=== PATIENT | female | born 1930 | race American Indian/Alaskan Native ===

== ENCOUNTER 2018-03-07 08:58 | Day surgery (SDC) | payer MEDICARE ==
[2018-03-07 12:59] VITALS: BP 179/94
== END 2018-03-07 13:08 | disposition home or self-care (01) ==
LOC: CATHLABREC 08:58
PROVIDERS: ATTEND Internal Medicine Cardiovascular Disease
DX: T82.897A Other specified complication of cardiac prosthetic devices, implants and grafts, initial encounter (principal); Y83.1 Surgical operation with implant of artificial internal device as the cause of abnormal reaction of the patient, or of later complication, without mention of misadventure at the time of the procedure
CPT/HCPCS: 76000

== ENCOUNTER 2019-07-01 18:35 | Inpatient (IN) | payer MEDICARE ==
--- NOTE | 2019-07-01 18:57 | Event Note ---
ED Screening Note Date of service: 07/01/19 Time: 18:54 ED Screening Note: 89 y o f presents with profuse sweats while at home and feeling fatigue states pacemaker in . cc od sob This initial assessment/diagnostic orders/clinical plan/treatment(s) is/are subject to change based on patients health status, clinical progression and re- assessment by fellow clinical providers in the ED. Further treatment and workup at subsequent clinical providers discretion. Patient/guardian urged not to elope from the ED as their condition may be serious if not clinically assessed and managed. Initial orders include: labs
[2019-07-01 19:37] LABS: Basophils # (Auto) 0.1 K/mm3 (0.0-0.1); Basophils % (Auto) 1.1 % (0.0-1.8); Eosinophils # (Auto) 0.2 K/mm3 (0.0-0.4); Eosinophils % (Auto) 2.6 % (0.0-4.3); Hematocrit 36.6 % (30.3-42.9); Hemoglobin 12.6 gm/dl (10.1-14.3); Lymphocytes # (Auto) 2.1 K/mm3 (1.2-5.4); Lymphocytes % (Auto) 32.3 % (13.4-35.0); Mean Corpuscular HGB Conc 35 % (30-34); Mean Corpuscular Volume 92 fl (79-97); Monocytes # (Auto) 0.8 K/mm3 (0.0-0.8); Monocytes % (Auto) 12.3 % (0.0-7.3); Platelet Count 277 K/mm3 (140-440); Red Blood Count 3.99 M/mm3 (3.65-5.03); Red Cell Distribution Width 12.9 % (13.2-15.2)
--- NOTE | 2019-07-01 19:40 | XRay Report ---
CHEST PA AND LATERAL VIEWS INDICATION: Weakness. COMPARISON: 03/13/2018 FINDINGS: Support devices: Bipolar pacemaker remains in position. Heart: Stable. Lungs/Pleura: Lungs are mildly hyperinflated but clear of acute disease. No pleural effusion. IMPRESSION: 1. No acute disease and no interval change. Signer Name: Alejandro Malone MD Signed: 07/01/2019 7:35 PM Workstation Name: [id number]
[2019-07-01 19:50] LABS: Calcium 9.5 mg/dL (8.4-10.2)
--- NOTE | 2019-07-01 20:52 | Emergency Department Report ---
ED Fever HPI - General Chief Complaint: Weakness Stated Complaint: FEVER/CHILLS/WEAK Time Seen by Provider: 07/01/19 18:53 Source: patient, family, RN notes reviewed Exam Limitations: no limitations - History of Present Illness Initial Comments: Mrs. Muse is a very pleasant 89-year-old female with history of hypertension, pacemaker, coronary artery disease, pulmonary embolism, CVA who presents with 5 days of generalized malaise with subjective fever and chills. On Wednesday she developed generalized malaise, fever and chills. Symptoms improve Tylenol. Mild sore throat. She is concerned about possible eating some bady food while traveling in [facility] last weekend. She denies any pain. She just doesn't feel well. Generalized weakness. Deniess chest pain or dysuria. Denies sick contact. Her daughter is at the bedside. Last year, had normal cardiac stress test during hospital admission. Timing/Duration: other (5 days) Fever Severity/Quality: subjective, low grade Fever Therapy FELT COVERER: Tylenol Associated Symptoms: weakness ED Review of Systems ROS: Stated complaint: FEVER/CHILLS/WEAK Other details as noted in HPI Comment: All other systems reviewed and negative Constitutional: chills, fever, malaise ENT: throat pain Respiratory: denies: cough, shortness of breath Cardiovascular: denies: chest pain Gastrointestinal: denies: abdominal pain, nausea, vomiting Genitourinary: denies: urgency, dysuria, frequency, hematuria Musculoskeletal: denies: back pain Neurological: denies: headache, numbness, paresthesias, confusion ED Past Medical Hx - Past Medical History Previous Medical History?: Yes Hx Hypertension: Yes Hx CVA: Yes Hx Heart Attack/AMI: Yes Hx Arthritis: Yes Hx COPD: Yes - Surgical History Past Surgical History?: Yes Hx Pacemaker: Yes Hx Appendectomy: Yes Additional Surgical History: 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 - Social History Smoking Status: Never Smoker - Medications Home Medications: Home Medications Medication Instructions Recorded Confirmed Last Taken Type AtorvaSTATin [Lipitor] 40 mg PO QHS #30 tablet 01/12/18 03/07/18 03/06/18 Rx 40mg Metoprolol Xl [Metoprolol 25 mg PO QDAY #30 tablet 01/12/18 03/07/18 03/06/18 Rx SUCCINATE ER TAB] 25mg Rivaroxaban [Xarelto] 20 mg PO QHS #30 tablet 01/12/18 03/07/18 03/06/18 Rx 20mg Valsartan/Hydrochlorothiazide 1 each PO DAILY #30 tablet 01/12/18 03/07/18 03/06/18 Rx [Valsartan-Hctz 320-25 mg Tab] 1 Meclizine [Antivert] 25 mg PO TID PRN #20 tablet 03/20/18 Unknown Rx ED Physical Exam - General Limitations: No Limitations General appearance: alert, in no apparent distress, other (appears well, healthy nontoxic appears younger than stated age) - Head Head exam: Present: atraumatic, normocephalic - Eye Eye exam: Present: normal appearance - ENT ENT exam: Present: mucous membranes moist - Neck Neck exam: Present: normal inspection, full ROM - Respiratory Respiratory exam: Present: normal lung sounds bilaterally. Absent: respiratory distress, wheezes, rales, rhonchi - Cardiovascular Cardiovascular Exam: Present: regular rate, normal rhythm, normal heart sounds. Absent: systolic murmur, diastolic murmur, rubs, gallop - GI/Abdominal GI/Abdominal exam: Present: soft, normal bowel sounds. Absent: distended, tenderness, guarding, rebound - Extremities Exam Extremities exam: Present: normal inspection - Back Exam Back exam: Present: normal inspection - Neurological Exam Neurological exam: Present: alert, oriented X3 - Psychiatric Psychiatric exam: Present: normal affect, normal mood - Skin Skin exam: Present: warm, dry, intact, normal color. Absent: rash ED Course Vital Signs 07/01/19 07/01/19 07/01/19 18:55 20:11 20:12 Temperature 97.8 F Pulse Rate 91 H 74 Respiratory 18 17 17 Rate Blood Pressure 204/70 Blood Pressure 173/80 [Left] O2 Sat by Pulse 97 97 97 Oximetry 07/01/19 21:52 Temperature Pulse Rate 68 Respiratory Rate Blood Pressure 165/70 Blood Pressure [Left] O2 Sat by Pulse Oximetry ED Medical Decision Making - Lab Data Result diagrams: 07/01/19 19:01 07/01/19 19:01 Laboratory Results - last 24 hr 07/01/19 07/01/19 19:01 19:01 WBC 6.6 RBC 3.99 Hgb 12.6 Hct 36.6 MCV 92 MCH 32 MCHC 35 H RDW 12.9 L Plt Count 277 Lymph % (Auto) 32.3 [place] % (Auto) 12.3 H Eos % (Auto) 2.6 Baso % (Auto) 1.1 Lymph # 2.1 White # 0.8 Eos # 0.2 Baso # 0.1 Seg Neutrophils % 51.7 Seg Neutrophils # 3.4 Sodium 139 Potassium 3.5 L Chloride 97.5 L Carbon Dioxide 28 Anion Gap 17 BUN 24 H Creatinine 1.7 H Estimated GFR 34 BUN/Creatinine Ratio 14 Glucose 123 H Calcium 9.5 Total Creatine Kinase 468 H Troponin T 0.012 - EKG Data 07/01/19 20:50 EKG obtained 184 atrial sensing ventricular pacing, porlonged MS interval paced QRS no si gnificant ST elevation 07/01/19 20:55 Previous EKG obtained 03/19/2018 revealed normal sinus rhythm normal axis normal intervals pacemaker activity not detected EKG December 2017 revealed atrial paced rhythm - Radiology Data Radiology results: report reviewed Chest x-ray pain and lateral views according to radiology interpretation and bip olar pacemaker remains in position, no acute disease and no interval change no pleural effusion - Medical Decision Making Mrs. Muse is an 89-year-old female who presents with generalized weakness subjective fever chlls. Findings on diagnostic workup reveals acute kidney injury, GFR 30 creatinine has increased from 0.8 to 1.7 over a year's time. Blood cultures obtained to rule out bacteremia. Acute kidney injury possibly due to poor by mouth intake versus infection versus medication. Accordance electronic medical record, she is taking hydrochlorothiazide. Hypertensive urgency addressed with dose of home medication obtained from the medical record . Elevated CK nonspecific finding without history of trauma or immobility. Urinalysis appeared contaminated with the bases as well as epithelial cells without indication of bacteria. Upon my observation, urine appeared dark concentrated. We'll cover for cystitis with Macrobid. Patient has penicillin allergy. Admitted to hospitalist service for further treatment and evaluation CT scan kidney protocol obtained for renal imaging with acute process. Incidental finding of a 5.5 cm pelvic mass will need outpatient evaluation. Critical care attestation.: If time is entered above; I have spent that time in minutes in the direct care of this critically ill patient, excluding procedure time. ED Disposition Clinical Impression: Acute kidney injury, Hypertensive urgency, Pelvic mass Disposition: OP ADMIT IP TO THIS HOSP Is pt being admited?: Yes Does the pt Need Aspirin: No Condition: Stable
[2019-07-01] MEDS ORDERED: NACL 0.9% 500 ML 500 ML IV ONE (20:57)
[2019-07-01] MEDS ORDERED: TOPROL XL PO ONE (21:00)
[2019-07-01 21:04] LABS: Bilirubin,Urine NEG (Negative); Blood,Urine SM (Negative); Color,Urine Amber (Yellow); Mucus,Urine 1+ /HPF
[2019-07-01] MEDS ORDERED: MACROBID PO ONE (21:56)
--- NOTE | 2019-07-01 22:14 | Cat Scan Report ---
CT abdomen pelvis wo con INDICATION: dark urine acute kidney injury. TECHNIQUE: All CT scans at this location are performed using CT dose reduction for ALARA by means of automated e xposure control. COMPARISON: None available. FINDINGS: Lung bases are clear. Tiny stones in the gallbladder. Liver, spleen, pancreas, kidneys and adrenals a re negative. Abdominal aorta is normal in size. Tiny cyst projects posteriorly from the lower pole of the left kidney; kidneys and adrenals are other lamar negative on this noncontrast exam. Abdominal aorta is normal in size. Pelvis 5.5 cm cyst in the right pelvis, probably ovarian cyst. Coarse calcification is demonstrated in the v luisa anterior aspect of this cyst. 4.2 cm bilobed mass with fat attenuation in the left adnexa, again with coarse calcification, probably dermal. Postop change in the lower uterus. Urinary bladder appear s negative. IMPRESSION: 1. Bilateral ovarian masses, as described, of questionable acute significance. 2. No evidence of significant renal injury on this noncontrast exam. Signer Name: Alejandro Malone MD Signed: 07/01/2019 10:10 PM Workstation Name: [id number]
[2019-07-01] MEDS ORDERED: TYLENOL PO PRN (23:41)
[2019-07-01] MEDS ORDERED: ZOFRAN IV PRN (23:41)
[2019-07-01] MEDS ORDERED: SODIUM CHLORIDE FLUSH SYRINGE 10 ML IV PRN (23:41)
--- NOTE | 2019-07-01 23:43 | History and Physical Report ---
History of Present Illness Date of examination: 07/01/19 History of present illness: 89 year old woman with a history of hypertension, coronary artery disease, CVA, history of colon cancer, PE comes emergency room with complaints of subjective fever chills, decreased appetite and energy. Taking Tylenol for subjective f ever since Wednesday Review Of Systems: Constitutional: no weight loss, fever, chills Ears, eyes, nose, mouth and throat: no nasal congestion, no nasal discharge, no sinus pressure, blurry vision, diplopia Neck: No neck pain or rigidity. Cardiovascular: No palpitations, chest pain Respiratory: No shortness of breath, cough Gastrointestinal: No hematochezia, abdominal pain Genitourinary : no dysuria, frequency , hematuria Musculoskeletal: no muscle ache , joint pain Integumentary: no rash, no pruritis Neurological: no parathesias, focal weakness Endocrine: no cold or heat intolerance, no polyuria or polydipsia Hematologic/Lymphatic: no easy bruising, no easy bleeding, no gland swelling Allergic/Immunologic: no urticaria, no angioedema. PAST MEDICAL HISTORY: hypertension, coronary artery disease, CVA, h/o colon cancer, PE PAST SURGICAL HISTORY: FAMILY HISTORY:hypertension, diabetes SOCIAL HISTORY: Denies tobacco, drugs, alcohol Medications and Allergies Allergies Allergy/AdvReac Type Severity Reaction Status Date / Time Penicillins Allergy Unknown Verified 01/11/18 05:46 Home Medications Medication Instructions Recorded Confirmed Last Taken Type Metoprolol Xl [Metoprolol 25 mg PO QDAY #30 tablet 01/12/18 07/02/19 1 Day Ago Rx SUCCINATE ER TAB] ~07/01/19 Rivaroxaban [Xarelto] 20 mg PO QHS #30 tablet 01/12/18 07/02/19 1 Day Ago Rx ~07/01/19 Valsartan/Hydrochlorothiazide 1 each PO DAILY #30 tablet 01/12/18 07/02/19 1 Day Ago Rx [Valsartan-Hctz 320-25 mg Tab] ~07/01/19 Active Meds: Active Medications Acetaminophen (Tylenol) 650 mg PO Q4H PRN PRN Reason: Pain MILD(1-3)/Fever >100.5/ESCOBEDO Enoxaparin Sodium (Lovenox) 30 mg SUB-Q QDAY BRANDY Sodium Chloride (Nacl 0.45% 1000 Ml) 1,000 mls @ 75 mls/hr IV DIRECT BRANDY Ondansetron HCl (Zofran) 4 mg IV Q4H PRN PRN Reason: Nausea And Vomiting Sodium Chloride (Sodium Chloride Flush Syringe 10 Ml) 10 ml IV BID BRANDY Sodium Chloride (Sodium Chloride Flush Syringe 10 Ml) 10 ml IV PRN PRN PRN Reason: LINE FLUSH Exam - Constitutional Vitals: Temp Pulse Resp BP Pulse Ox 97.8 F 68 17 165/70 97 07/01/19 18:55 07/01/19 21:52 07/01/19 20:12 07/01/19 21:52 07/01/19 20:12 Results - Labs CBC & Chem 7: 07/01/19 19:01 07/01/19 19:01 Labs: Abnormal lab results 07/01/19 07/01/19 07/01/19 Range/Units 19:01 19:01 20:35 MCHC 35 H (30-34) % RDW 12.9 L (13.2-15.2) % [place] % (Auto) 12.3 H (0.0-7.3) % Potassium 3.5 L (3.6-5.0) mmol/L Chloride 97.5 L (98-107) mmol/L BUN 24 H (7-17) mg/dL Creatinine 1.7 H (0.7-1.2) mg/dL Glucose 123 H (65-100) mg/dL Total Creatine Kinase 468 H (30-135) units/L Urine WBC (Auto) 10.0 H (0.0-6.0) /HPF Assessment and Plan Assessment Acute renal insufficiency Ovarian mases hypertension coronary artery disease CVA colon cancer H/O PE Plan Admit to medicine Start IV fluids, monitor kidney function hold valsartan/hctz Consult INSTITUTIONAL COMMODITY ANALYST, levaquin for UTI Continue appropriate outpatient medications DVT prophylaxis
[2019-07-01] MEDS ORDERED: APRESOLINE IV PRN (23:47)
[2019-07-02] MEDS ORDERED: LEVAQUIN 500MG/100ML 500 MG/100 ML BAG IV SCH (00:30)
[2019-07-02] MEDS: NACL 0.45% 1000 ML 1,000 ML IV SCH ×2 (01:52→14:04)
[2019-07-02 06:45] LABS: Basophils # (Auto) 0.1 K/mm3 (0.0-0.1); Eosinophils # (Auto) 0.2 K/mm3 (0.0-0.4); Eosinophils % (Auto) 2.9 % (0.0-4.3); Hematocrit 33.7 % (30.3-42.9); Hemoglobin 11.4 gm/dl (10.1-14.3); Lymphocytes # (Auto) 1.8 K/mm3 (1.2-5.4); Lymphocytes % (Auto) 31.9 % (13.4-35.0); Mean Corpuscular HGB Conc 34 % (30-34); Mean Corpuscular Volume 92 fl (79-97); Monocytes # (Auto) 0.6 K/mm3 (0.0-0.8); Platelet Count 249 K/mm3 (140-440); Red Blood Count 3.65 M/mm3 (3.65-5.03); Red Cell Distribution Width 13.2 % (13.2-15.2)
[2019-07-02 06:53] LABS: BUN/Creatinine Ratio 20; Blood Urea Nitrogen 20 mg/dL (7-17); Calcium 8.9 mg/dL (8.4-10.2); Hemolysis Index 16
[2019-07-02] MEDS ORDERED: APRESOLINE IV PRN (09:32)
--- NOTE | 2019-07-02 09:32 | Progress Note ---
Assessment and Plan Assessment and plan: Acute renal failure. Etiology likely secondary to vasomotor nephropathy/dehydration. Continue IV fluid hydration. Continue to hold valsartan and hydrochlorothiazide. Follow-up BMP. Ovarian mases. ENGINEER PROCESS consultation pending. Hypertension. Start hydralazine daily Coronary artery disease. Stable. CVA. Stable. Colon cancer. H/O PE History Interval history: No new issues overnight Hospitalist Physical - Constitutional Vitals: Temp Pulse Resp BP Pulse Ox 97.8 F 51 L 20 184/91 97 07/02/19 03:19 07/02/19 04:10 07/02/19 08:11 07/02/19 04:10 07/02/19 07:49 General appearance: Present: no acute distress, well-nourished - EENT Eyes: Present: PERRL, EOM intact ENT: hearing intact, clear oral mucosa, dentition normal - Neck Neck: Present: supple, normal ROM - Respiratory Respiratory effort: normal Respiratory: bilateral: CTA - Cardiovascular Rhythm: regular Heart Sounds: Present: S1 & S2. Absent: gallop, rub - Extremities Extremities: no ischemia, No edema, Full ROM - Abdominal General gastrointestinal: soft, non-tender, non-distended, normal bowel sounds - Integumentary Integumentary: Present: clear, warm, dry - Neurologic Neurologic: CNII-XII intact, moves all extremities Results - Labs CBC & Chem 7: 07/02/19 04:25 07/02/19 04:25 Labs: Laboratory Last Values WBC 5.6 K/mm3 (4.5-11.0) 07/02/19 04:25 RBC 3.65 M/mm3 (3.65-5.03) 07/02/19 04:25 Hgb 11.4 gm/dl (10.1-14.3) 07/02/19 04:25 Hct 33.7 % (30.3-42.9) 07/02/19 04:25 MCV 92 fl (79-97) 07/02/19 04:25 MCH 31 pg (28-32) 07/02/19 04:25 MCHC 34 % (30-34) 07/02/19 04:25 RDW 13.2 % (13.2-15.2) 07/02/19 04:25 Plt Count 249 K/mm3 (140-440) 07/02/19 04:25 Lymph % (Auto) 31.9 % (13.4-35.0) 07/02/19 04:25 [place] % (Auto) 11.0 % (0.0-7.3) H 07/02/19 04:25 Eos % (Auto) 2.9 % (0.0-4.3) 07/02/19 04:25 Baso % (Auto) 1.0 % (0.0-1.8) 07/02/19 04:25 Lymph # 1.8 K/mm3 (1.2-5.4) 07/02/19 04:25 [place] # 0.6 K/mm3 (0.0-0.8) 07/02/19 04:25 Eos # 0.2 K/mm3 (0.0-0.4) 07/02/19 04:25 Baso # 0.1 K/mm3 (0.0-0.1) 07/02/19 04:25 Seg Neutrophils % 53.2 % (40.0-70.0) 07/02/19 04:25 Seg Neutrophils # 3.0 K/mm3 (1.8-7.7) 07/02/19 04:25 Sodium 137 mmol/L (137-145) 07/02/19 04:25 Potassium 3.3 mmol/L (3.6-5.0) L 07/02/19 04:25 Chloride 101.2 mmol/L (98-107) 07/02/19 04:25 Carbon Dioxide 24 mmol/L (22-30) 07/02/19 04:25 15 mmol/L 07/02/19 04:25 BUN 20 mg/dL (7-17) H 07/02/19 04:25 1.0 mg/dL (0.7-1.2) 07/02/19 04:25 Estimated GFR > 60 ml/min 07/02/19 04:25 20 % 07/02/19 04:25 Glucose 122 mg/dL (65-100) H 07/02/19 04:25 Calcium 8.9 mg/dL (8.4-10.2) 07/02/19 04:25 468 units/L (30-135) H 07/01/19 19:01 0.012 ng/mL (0.00-0.029) 07/01/19 19:01 [place] (Yellow) 07/01/19 20:35 Slightly-cloudy (Clear) 07/01/19 20:35 5.0 (5.0-7.0) 07/01/19 20:35 Ur Specific [place] 1.020 (1.003-1.030) 07/01/19 20:35 30 mg/dl mg/dL (Negative) 07/01/19 20:35 Neg mg/dL (Negative) 07/01/19 20:35 Neg mg/dL (Negative) 07/01/19 20:35 Sm (Negative) 07/01/19 20:35 Neg (Negative) 07/01/19 20:35 Neg (Negative) 07/01/19 20:35 4.0 mg/dL (<2.0) 07/01/19 20:35 Ur Leukocyte Esterase Tr (Negative) 07/01/19 20:35 10.0 /HPF (0.0-6.0) H 07/01/19 20:35 3.0 /HPF (0.0-6.0) 07/01/19 20:35 U Epithel Cells (Auto) 5.0 /HPF (0-13.0) 07/01/19 20:35 1+ /HPF 07/01/19 20:35 Active Medications - Current Medications Current Medications: Generic Name Dose Route Start Last Admin Trade Name Freq PRN Reason Stop Dose Admin Acetaminophen 650 mg 07/01/19 23:41 Tylenol PO Q4H PRN Pain MILD(1-3)/Fever >100.5/ESCOBEDO Hydralazine HCl 5 mg 07/01/19 23:47 07/02/19 04:10 Apresoline IV 5 mg Q6H PRN Administration Hypertension Sodium Chloride 1,000 mls @ 75 mls/hr 07/01/19 23:45 07/02/19 01:52 Nacl 0.45% 1000 Ml IV 75 mls/hr DIRECT BRANDY Administration Levofloxacin/Dextrose 500 mg in 100 mls @ 100 mls/hr 07/03/19 10:00 Levaquin 500mg/100ml IV Q24HR BRANDY Metoprolol Succinate 25 mg 07/02/19 10:00 Toprol Xl PO QDAY BRANDY Ondansetron HCl 4 mg 07/01/19 23:41 Zofran IV Q4H PRN Nausea And Vomiting Rivaroxaban 20 mg 07/02/19 22:00 Xarelto PO QHS [facility] Protocol Sodium Chloride 10 ml 07/02/19 10:00 Sodium Chloride Flush Syringe 10 Ml IV BID [facility] Sodium Chloride 10 ml 07/01/19 23:41 Sodium Chloride Flush Syringe 10 Ml IV PRN PRN LINE FLUSH
[2019-07-02] MEDS ORDERED: LOVENOX SUB-Q SCH (10:00)
[2019-07-02] MEDS: TOPROL XL PO SCH (11:00)
[2019-07-02] MEDS: SODIUM CHLORIDE FLUSH SYRINGE 10 ML IV SCH ×2 (11:00→21:40)
[2019-07-02] MEDS: APRESOLINE PO SCH ×2 (14:05→21:39)
[2019-07-02] MEDS: XARELTO PO SCH (21:39)
[2019-07-03] MEDS: NACL 0.45% 1000 ML 1,000 ML IV SCH ×2 (04:07→16:33)
[2019-07-03] MEDS: APRESOLINE PO SCH ×3 (05:20→22:48)
[2019-07-03 05:28] LABS: Basophils % (Auto) 0.8 % (0.0-1.8); Eosinophils # (Auto) 0.2 K/mm3 (0.0-0.4); Eosinophils % (Auto) 3.5 % (0.0-4.3); Hematocrit 32.7 % (30.3-42.9); Lymphocytes % (Auto) 37.8 % (13.4-35.0); Mean Corpuscular HGB Conc 34 % (30-34); Mean Corpuscular Volume 92 fl (79-97); Monocytes # (Auto) 0.5 K/mm3 (0.0-0.8); Monocytes % (Auto) 9.9 % (0.0-7.3); Platelet Count 254 K/mm3 (140-440); Red Blood Count 3.57 M/mm3 (3.65-5.03); Red Cell Distribution Width 13.2 % (13.2-15.2)
[2019-07-03 07:06] LABS: BUN/Creatinine Ratio 16; Blood Urea Nitrogen 13 mg/dL (7-17); Calcium 8.7 mg/dL (8.4-10.2); Hemolysis Index 4
[2019-07-03] MEDS: LEVAQUIN 500MG/100ML 500 MG/100 ML BAG IV SCH (09:19)
[2019-07-03] MEDS: TOPROL XL PO SCH (09:19)
[2019-07-03] MEDS: SODIUM CHLORIDE FLUSH SYRINGE 10 ML IV SCH ×2 (09:20→22:48)
--- NOTE | 2019-07-03 11:26 | Progress Note ---
History Interval history: No new issues overnight Hospitalist Physical - Constitutional Vitals: Temp Pulse Resp BP Pulse Ox 98.1 F 61 20 165/68 95 07/03/19 07:37 07/03/19 10:00 07/03/19 07:37 07/03/19 09:19 07/03/19 07:37 General appearance: Present: no acute distress, well-nourished - EENT Eyes: Present: PERRL, EOM intact ENT: hearing intact, clear oral mucosa, dentition normal - Neck Neck: Present: supple, normal ROM - Respiratory Respiratory effort: normal Respiratory: bilateral: CTA - Cardiovascular Rhythm: regular Heart Sounds: Present: S1 & S2. Absent: gallop, rub - Extremities Extremities: no ischemia, No edema, Full ROM - Abdominal General gastrointestinal: soft, non-tender, non-distended, normal bowel sounds - Integumentary Integumentary: Present: clear, warm, dry - Neurologic Neurologic: CNII-XII intact, moves all extremities Results - Labs CBC & Chem 7: 07/03/19 04:15 07/03/19 04:15 Labs: Laboratory Last Values WBC 5.3 K/mm3 (4.5-11.0) 07/03/19 04:15 RBC 3.57 M/mm3 (3.65-5.03) L 07/03/19 04:15 Hgb 11.0 gm/dl (10.1-14.3) 07/03/19 04:15 Hct 32.7 % (30.3-42.9) 07/03/19 04:15 MCV 92 fl (79-97) 07/03/19 04:15 MCH 31 pg (28-32) 07/03/19 04:15 MCHC 34 % (30-34) 07/03/19 04:15 RDW 13.2 % (13.2-15.2) 07/03/19 04:15 Plt Count 254 K/mm3 (140-440) 07/03/19 04:15 Lymph % (Auto) 37.8 % (13.4-35.0) H 07/03/19 04:15 [place] % (Auto) 9.9 % (0.0-7.3) H 07/03/19 04:15 Eos % (Auto) 3.5 % (0.0-4.3) 07/03/19 04:15 Baso % (Auto) 0.8 % (0.0-1.8) 07/03/19 04:15 Lymph # 2.0 K/mm3 (1.2-5.4) 07/03/19 04:15 [place] # 0.5 K/mm3 (0.0-0.8) 07/03/19 04:15 Eos # 0.2 K/mm3 (0.0-0.4) 07/03/19 04:15 Baso # 0.0 K/mm3 (0.0-0.1) 07/03/19 04:15 Seg Neutrophils % 48.0 % (40.0-70.0) 07/03/19 04:15 Seg Neutrophils # 2.5 K/mm3 (1.8-7.7) 07/03/19 04:15 Sodium 136 mmol/L (137-145) L 07/03/19 04:15 Potassium 3.3 mmol/L (3.6-5.0) L 07/03/19 04:15 Chloride 101.2 mmol/L (98-107) 07/03/19 04:15 Carbon Dioxide 23 mmol/L (22-30) 07/03/19 04:15 15 mmol/L 07/03/19 04:15 BUN 13 mg/dL (7-17) 07/03/19 04:15 0.8 mg/dL (0.7-1.2) 07/03/19 04:15 Estimated GFR > 60 ml/min 07/03/19 04:15 16 % 07/03/19 04:15 Glucose 106 mg/dL (65-100) H 07/03/19 04:15 Calcium 8.7 mg/dL (8.4-10.2) 07/03/19 04:15 468 units/L (30-135) H 07/01/19 19:01 0.012 ng/mL (0.00-0.029) 07/01/19 19:01 [place] (Yellow) 07/01/19 20:35 Slightly-cloudy (Clear) 07/01/19 20:35 5.0 (5.0-7.0) 07/01/19 20:35 Ur Specific [place] 1.020 (1.003-1.030) 07/01/19 20:35 30 mg/dl mg/dL (Negative) 07/01/19 20:35 Neg mg/dL (Negative) 07/01/19 20:35 Neg mg/dL (Negative) 07/01/19 20:35 Sm (Negative) 07/01/19 20:35 Neg (Negative) 07/01/19 20:35 Neg (Negative) 07/01/19 20:35 4.0 mg/dL (<2.0) 07/01/19 20:35 Ur Leukocyte Esterase Tr (Negative) 07/01/19 20:35 10.0 /HPF (0.0-6.0) H 07/01/19 20:35 3.0 /HPF (0.0-6.0) 07/01/19 20:35 U Epithel Cells (Auto) 5.0 /HPF (0-13.0) 07/01/19 20:35 1+ /HPF 07/01/19 20:35 Active Medications - Current Medications Current Medications: Generic Name Dose Route Start Last Admin Trade Name Mahamedq PRN Reason Stop Dose Admin Acetaminophen 650 mg 07/01/19 23:41 07/02/19 12:14 Tylenol PO 650 mg Q4H PRN Administration Pain MILD(1-3)/Fever >100.5/ESCOBEDO Hydralazine HCl 10 mg 07/02/19 09:32 Apresoline IV Q6H PRN Hypertension Hydralazine HCl 50 mg 07/02/19 14:00 07/03/19 05:20 Apresoline PO 50 mg Q8HR BRANDY Administration Sodium Chloride 1,000 mls @ 75 mls/hr 07/01/19 23:45 07/03/19 04:07 Nacl 0.45% 1000 Ml IV 75 mls/hr DIRECT BRANDY Administration Levofloxacin/Dextrose 500 mg in 100 mls @ 100 mls/hr 07/03/19 10:00 07/03/19 09:19 Levaquin 500mg/100ml IV 100 mls/hr Q24HR BRANDY Administration Metoprolol Succinate 25 mg 07/02/19 10:00 07/03/19 09:19 Toprol Xl PO 25 mg QDAY BRANDY Administration Ondansetron HCl 4 mg 07/01/19 23:41 Zofran IV Q4H PRN Nausea And Vomiting Rivaroxaban 20 mg 07/02/19 22:00 07/02/19 21:39 Xarelto PO 20 mg QHS BRANDY Administration Protocol Sodium Chloride 10 ml 07/02/19 10:00 07/03/19 09:20 Sodium Chloride Flush Syringe 10 Ml IV 10 ml BID BRANDY Administration Sodium Chloride 10 ml 07/01/19 23:41 Sodium Chloride Flush Syringe 10 Ml IV PRN PRN LINE FLUSH
--- NOTE | 2019-07-03 11:34 | Progress Note ---
Assessment and Plan Assessment and plan: Acute renal failure. Etiology likely secondary to vasomotor nephropathy/dehydration. Resolved with IV fluid hydration. Continue to hold valsartan and hydrochlorothiazide. Continue to follow BMP. Ovarian mases. CLINICAL HAEMATOLOGIST consultation pending. UTI. Continue antibiotics. Hypertension. Increase hydralazine to 75 mg daily Coronary artery disease. Stable. CVA. Stable. Colon cancer. H/O PE Hx of CVA Disposition. Anticipate discharge in a.m. if okay with CLINICAL HAEMATOLOGIST. History Interval history: No new issues overnight Hospitalist Physical - Constitutional Vitals: Temp Pulse Resp BP Pulse Ox 98.1 F 61 20 165/68 95 07/03/19 07:37 07/03/19 10:00 07/03/19 07:37 07/03/19 09:19 07/03/19 07:37 General appearance: Present: no acute distress, well-nourished - EENT Eyes: Present: PERRL, EOM intact ENT: hearing intact, clear oral mucosa, dentition normal - Neck Neck: Present: supple, normal ROM - Respiratory Respiratory effort: normal Respiratory: bilateral: CTA - Cardiovascular Rhythm: regular Heart Sounds: Present: S1 & S2. Absent: gallop, rub - Extremities Extremities: no ischemia, No edema, Full ROM - Abdominal General gastrointestinal: soft, non-tender, non-distended, normal bowel sounds - Integumentary Integumentary: Present: clear, warm, dry - Neurologic Neurologic: CNII-XII intact, moves all extremities Results - Labs CBC & Chem 7: 07/03/19 04:15 07/03/19 04:15 Labs: Laboratory Last Values WBC 5.3 K/mm3 (4.5-11.0) 07/03/19 04:15 RBC 3.57 M/mm3 (3.65-5.03) L 07/03/19 04:15 Hgb 11.0 gm/dl (10.1-14.3) 07/03/19 04:15 Hct 32.7 % (30.3-42.9) 07/03/19 04:15 MCV 92 fl (79-97) 07/03/19 04:15 MCH 31 pg (28-32) 07/03/19 04:15 MCHC 34 % (30-34) 07/03/19 04:15 RDW 13.2 % (13.2-15.2) 07/03/19 04:15 Plt Count 254 K/mm3 (140-440) 07/03/19 04:15 Lymph % (Auto) 37.8 % (13.4-35.0) H 07/03/19 04:15 [place] % (Auto) 9.9 % (0.0-7.3) H 07/03/19 04:15 Eos % (Auto) 3.5 % (0.0-4.3) 07/03/19 04:15 Baso % (Auto) 0.8 % (0.0-1.8) 07/03/19 04:15 Lymph # 2.0 K/mm3 (1.2-5.4) 07/03/19 04:15 [place] # 0.5 K/mm3 (0.0-0.8) 07/03/19 04:15 Eos # 0.2 K/mm3 (0.0-0.4) 07/03/19 04:15 Baso # 0.0 K/mm3 (0.0-0.1) 07/03/19 04:15 Seg Neutrophils % 48.0 % (40.0-70.0) 07/03/19 04:15 Seg Neutrophils # 2.5 K/mm3 (1.8-7.7) 07/03/19 04:15 Sodium 136 mmol/L (137-145) L 07/03/19 04:15 Potassium 3.3 mmol/L (3.6-5.0) L 07/03/19 04:15 Chloride 101.2 mmol/L (98-107) 07/03/19 04:15 Carbon Dioxide 23 mmol/L (22-30) 07/03/19 04:15 15 mmol/L 07/03/19 04:15 BUN 13 mg/dL (7-17) 07/03/19 04:15 0.8 mg/dL (0.7-1.2) 07/03/19 04:15 Estimated GFR > 60 ml/min 07/03/19 04:15 16 % 07/03/19 04:15 Glucose 106 mg/dL (65-100) H 07/03/19 04:15 Calcium 8.7 mg/dL (8.4-10.2) 07/03/19 04:15 468 units/L (30-135) H 07/01/19 19:01 0.012 ng/mL (0.00-0.029) 07/01/19 19:01 Cami (Yellow) 07/01/19 20:35 Slightly-cloudy (Clear) 07/01/19 20:35 5.0 (5.0-7.0) 07/01/19 20:35 Ur Specific [place] 1.020 (1.003-1.030) 07/01/19 20:35 30 mg/dl mg/dL (Negative) 07/01/19 20:35 Neg mg/dL (Negative) 07/01/19 20:35 Neg mg/dL (Negative) 07/01/19 20:35 Sm (Negative) 07/01/19 20:35 Neg (Negative) 07/01/19 20:35 Neg (Negative) 07/01/19 20:35 4.0 mg/dL (<2.0) 07/01/19 20:35 Ur Leukocyte Esterase Tr (Negative) 07/01/19 20:35 10.0 /HPF (0.0-6.0) H 07/01/19 20:35 3.0 /HPF (0.0-6.0) 07/01/19 20:35 U Epithel Cells (Auto) 5.0 /HPF (0-13.0) 07/01/19 20:35 1+ /HPF 07/01/19 20:35 Active Medications - Current Medications Current Medications: Generic Name Dose Route Start Last Admin Trade Name Freq PRN Reason Stop Dose Admin Acetaminophen 650 mg 07/01/19 23:41 07/02/19 12:14 Tylenol PO 650 mg Q4H PRN Administration Pain MILD(1-3)/Fever >100.5/ESCOBEDO Hydralazine HCl 10 mg 07/02/19 09:32 Apresoline IV Q6H PRN Hypertension Hydralazine HCl 50 mg 07/02/19 14:00 07/03/19 05:20 Apresoline PO 50 mg Q8HR BRANDY Administration Sodium Chloride 1,000 mls @ 75 mls/hr 07/01/19 23:45 07/03/19 04:07 Nacl 0.45% 1000 Ml IV 75 mls/hr DIRECT BRANDY Administration Levofloxacin/Dextrose 500 mg in 100 mls @ 100 mls/hr 07/03/19 10:00 07/03/19 09:19 Levaquin 500mg/100ml IV 100 mls/hr Q24HR BRANDY Administration Metoprolol Succinate 25 mg 07/02/19 10:00 07/03/19 09:19 Toprol Xl PO 25 mg QDAY BRANDY Administration Ondansetron HCl 4 mg 07/01/19 23:41 Zofran IV Q4H PRN Nausea And Vomiting Rivaroxaban 20 mg 07/02/19 22:00 07/02/19 21:39 Xarelto PO 20 mg QHS BRANDY Administration Protocol Sodium Chloride 10 ml 07/02/19 10:00 07/03/19 09:20 Sodium Chloride Flush Syringe 10 Ml IV 10 ml BID BRANDY Administration Sodium Chloride 10 ml 07/01/19 23:41 Sodium Chloride Flush Syringe 10 Ml IV PRN PRN LINE FLUSH
--- NOTE | 2019-07-03 19:44 | Consultation ---
History of Present Illness Consult date: 07/03/19 Reason for consult: ovarian cyst History of present illness: Patient is a 89 year old female with multiple medical issues including renal insufficiency, urosepsis, hypertension, and diabetes who was found to have 5cm cyst on the right ovary with ct scan as an incidental finding. Past History Past Medical History: heart disease, hypertension, renal disease, cancer (colon) Past Surgical History: colorectal surgery, hysterectomy Social history: single Medications and Allergies Allergies Allergy/AdvReac Type Severity Reaction Status Date / Time Penicillins Allergy Unknown Verified 01/11/18 05:46 Home Medications Medication Instructions Recorded Confirmed Last Taken Type Metoprolol Xl [Metoprolol 25 mg PO QDAY #30 tablet 01/12/18 07/02/19 1 Day Ago Rx SUCCINATE ER TAB] ~07/01/19 Rivaroxaban [Xarelto] 20 mg PO QHS #30 tablet 01/12/18 07/02/19 1 Day Ago Rx ~07/01/19 Valsartan/Hydrochlorothiazide 1 each PO DAILY #30 tablet 01/12/18 07/02/19 1 Day Ago Rx [Valsartan-Hctz 320-25 mg Tab] ~07/01/19 Active Meds: Active Medications Acetaminophen (Tylenol) 650 mg PO Q4H PRN PRN Reason: Pain MILD(1-3)/Fever >100.5/ESCOBEDO Last Admin: 07/02/19 12:14 Dose: 650 mg Documented by: Hydralazine HCl (Apresoline) 10 mg IV Q6H PRN PRN Reason: Hypertension Hydralazine HCl (Apresoline) 75 mg PO Q8HR [facility] Last Admin: 07/03/19 15:27 Dose: 75 mg Documented by: Sodium Chloride (Nacl 0.45% 1000 Ml) 1,000 mls @ 75 mls/hr IV DIRECT [facility] Last Admin: 07/03/19 16:33 Dose: 75 mls/hr Documented by: Levofloxacin/Dextrose (Levaquin 500mg/100ml) 500 mg in 100 mls @ 100 mls/hr IV Q24HR [facility] Last Admin: 07/03/19 09:19 Dose: 100 mls/hr Documented by: Metoprolol Succinate (Toprol Xl) 25 mg PO QDAY [facility] Last Admin: 07/03/19 09:19 Dose: 25 mg Documented by: Ondansetron HCl (Zofran) 4 mg IV Q4H PRN PRN Reason: Nausea And Vomiting Rivaroxaban (Xarelto) 20 mg PO QHS [facility]; Protocol Last Admin: 07/02/19 21:39 Dose: 20 mg Documented by: Sodium Chloride (Sodium Chloride Flush Syringe 10 Ml) 10 ml IV BID [facility] Last Admin: 07/03/19 09:20 Dose: 10 ml Documented by: Sodium Chloride (Sodium Chloride Flush Syringe 10 Ml) 10 ml IV PRN PRN PRN Reason: LINE FLUSH Review of Systems Constitutional: weight loss, fever, chills, weakness, malaise, poor appetite Gastrointestinal: abdominal pain Genitourinary: pelvic pain Rectal Exam: deferred - Vital Signs Vital signs: Vital Signs Temp Pulse Resp BP Pulse Ox 97.8 F 91 H 18 204/70 97 07/01/19 18:55 07/01/19 18:55 07/01/19 18:55 07/01/19 18:55 07/01/19 18:55 Temp Pulse Resp BP Pulse Ox 98.0 F 85 20 133/63 95 07/03/19 13:35 07/03/19 13:35 07/03/19 13:35 07/03/19 13:35 07/03/19 13:35 - Physical Exam Breasts: Cardiovascular: Normal S1, Normal S2 Abdomen: Positive: normal appearance, soft, normal bowel sounds. Negative: distention, tenderness Vulva: both: normal Vagina: Positive: atrophic mucosa Cervix: Positive: lesion, discharge Uterus: Positive: absent Adnexa: both: normal Anus/Rectum: Positive: normal perianal skin, heme negative. Negative: rectal mass, hemorrhoids Extremities: Deep Tendon Reflex Grade: Normal +2 Results Result Diagrams: 07/03/19 04:15 07/03/19 04:15 Abnormal lab results 07/03/19 07/03/19 Range/Units 04:15 04:15 RBC 3.57 L (3.65-5.03) M/mm3 Lymph % (Auto) 37.8 H (13.4-35.0) % [place] % (Auto) 9.9 H (0.0-7.3) % Sodium 136 L (137-145) mmol/L Potassium 3.3 L (3.6-5.0) mmol/L Glucose 106 H (65-100) mg/dL All other labs normal. Assessment and Plan 89 year old female here with ovarian cyst in face of other complex medical issues. Would consider ultrasound to better evaluate pelvis for more accurate reading, however, as patient is not a surgical candidate, the most prudent course would be observation over some months and follow up as outpatient.
[2019-07-03] MEDS: XARELTO PO SCH (22:48)
[2019-07-04] MEDS: APRESOLINE PO SCH ×2 (06:27→13:28)
[2019-07-04] MEDS: NACL 0.45% 1000 ML 1,000 ML IV SCH (06:27)
[2019-07-04] MEDS: TOPROL XL PO SCH (09:28)
[2019-07-04] MEDS: LEVAQUIN 500MG/100ML 500 MG/100 ML BAG IV SCH (09:30)
[2019-07-04] MEDS: SODIUM CHLORIDE FLUSH SYRINGE 10 ML IV SCH (09:31)
[2019-07-04 13:54] VITALS: BP 142/64
--- NOTE | 2019-07-04 15:49 | Discharge Summary ---
Providers - Providers Date of Admission: 07/02/19 02:21 Date of discharge: 07/04/19 Attending physician: JUAN RICHARDS 07/02/19 06:09 Consult to Physician [CONS] Routine Comment: VERNON Consulting Provider: CLARISSA WALTON Physician Instructions: CONSULT WAS CALLED TO @ [phone] Reason For Exam: ovarian masses 07/03/19 15:30 Physical Therapy Evaluation and Treat [CONS] Routine Comment: Reason For Exam: Weakness Primary care physician: DYE TUB TENDER Hospitalization Condition: Stable Hospital course: Patient is a 89 yo woman with a history of hypertension, coronary artery disease, CVA, history of colon cancer, PE comes emergency room with complaints of subjective fever chills, decreased appetite and energy. Discharge Diagnoses: Acute renal failure. Etiology likely secondary to vasomotor nephropathy/dehydration. Resolved with IV fluid hydration. Continue to hold valsartan and hydrochlorothiazide. Ovarian mass. SCIENCE CONSULTANT consulted, input noted, outpt follow up UTI. Continue antibiotics. Hypertension. Increase hydralazine to 75 mg daily Coronary artery disease. Stable. History of CVA, ruled out acute CVA History of Colon cancer. History of PE Disposition: DC- TO HOME OR SELFCARE Time spent for discharge: 36 minutes Core Measure Documentation - Palliative Care Palliative Care/ Comfort Measures: Not Applicable - Core Measures Any of the following diagnoses?: none - VTE Discharge Requirements Deep Vein Thrombosis/Pulmonary Embolism Present on Admission: No Has pt received <5 days of overlap therapy or INR<2.0: No Anticoagulant overlap therapy prescribed at discharge: No Contraindication No Overlap Therapy order at DC: Not Indicated Exam - Physical Exam Narrative exam: Gen: WDWN, NAD, Awake, Alert, Orientated HEENT: NCAT, EOMI, PERRL, OP Clear Neck: supple, no adenopathy, no thyromegaly, no JVD CVS/Heart: RRR, normal S1S2, pulses present bilaterally Chest/Lungs: CTA B, Symmetrical chest expansion, good air entry bilaterally GI/Abdomen: soft, NTND, good bowel sounds, no guarding or rebound /Bladder: no suprapubic tenderness, no CVA or paraspinal tenderness Extermity/Skin: no c/c/e, no obvious rash MSK: FROM x 4 Neuro: CN 2-12 grossly intact, no new focal deficits Psych: calm - Constitutional Vitals: Temp Pulse Resp BP Pulse Ox 98.0 F 82 20 142/64 98 07/04/19 13:35 07/04/19 13:35 07/04/19 13:35 07/04/19 13:35 07/04/19 13:35 Plan Activity: other (no strenous activity unless cleared by PCP) Diet: low salt Follow up with: PRIMARY CARE, [Primary Care Provider] - 7 Days Prescriptions: hydrALAZINE [Apresoline TAB] 3 tab PO TID 31 Days tablet
== END 2019-07-04 18:45 | disposition home or self-care (01) | DRG 689 ==
LOC: ED 18:35 → 2B-ACE 07-02 02:21
PROVIDERS: ADMIT Internal Medicine; ATTEND Internal Medicine
DX: N39.0 Urinary tract infection, site not specified (principal); N17.0 Acute kidney failure with tubular necrosis; I16.0 Hypertensive urgency; I10 Essential (primary) hypertension; I25.10 Atherosclerotic heart disease of native coronary artery without angina pectoris; E86.0 Dehydration; M19.90 Unspecified osteoarthritis, unspecified site; N83.9 Noninflammatory disorder of ovary, fallopian tube and broad ligament, unspecified; R19.00 Intra-abdominal and pelvic swelling, mass and lump, unspecified site; E11.9 Type 2 diabetes mellitus without complications; N83.209 Unspecified ovarian cyst, unspecified side; J44.9 Chronic obstructive pulmonary disease, unspecified; Z90.710 Acquired absence of both cervix and uterus; Z88.0 Allergy status to penicillin; Z86.73 Personal history of transient ischemic attack (TIA), and cerebral infarction without residual deficits; Z85.038 Personal history of other malignant neoplasm of large intestine; Z86.711 Personal history of pulmonary embolism; Z79.899 Other long term (current) drug therapy; Z82.49 Family history of ischemic heart disease and other diseases of the circulatory system; Z83.3 Family history of diabetes mellitus; Z95.0 Presence of cardiac pacemaker; I25.2 Old myocardial infarction; Z90.49 Acquired absence of other specified parts of digestive tract
CPT/HCPCS: 36415; 71046; 74176; 80048; 81001; 82550; 84484; 85025; 87040; 87086; 93005; 93010; G0378; J0360; J1956; J7030; J7040

== ENCOUNTER 2021-07-27 17:38 | Emergency (ER) | payer MEDICARE ==
[2021-07-27 18:11] VITALS: BP 175/71
--- NOTE | 2021-07-27 18:49 | Emergency Department Report ---
ED Shortness of Breath HPI - General Chief Complaint: Upper Respiratory Infection Stated Complaint: EAR AND NECK PAIN Time Seen by Provider: 07/27/21 18:30 Source: patient Mode of arrival: Ambulatory Limitations: Physical Limitation - History of Present Illness Initial Comments: Patient is 89 years old female with history of congestive heart failure, COPD, hypertension and CVA. Patient brought to the emergency room by her daughter for evaluation of shortness of breath, cough and throat pain for the last few days. Patient stated that her granddaughter came with a flu like symptoms few days ago and she catch it. She she stated that she is over the fever and the cough now but she stated that she used peroxide to clean her throat and she is having some burning sensation since then. Patient denied any chest pain, abdominal pain, nausea or vomiting. MD Complaint: shortness of breath, cough -: days(s) Known History Of: congestive heart failure Context: recent URI Associated Symptoms: fever, cough - Related Data Previous Rx's Medication Instructions Recorded Last Taken Type Metoprolol Xl [Metoprolol 25 mg PO QDAY #30 tablet 01/12/18 1 Day Ago Rx SUCCINATE ER TAB] ~07/01/19 25 mg Rivaroxaban [Xarelto] 20 mg PO QHS #30 tablet 01/12/18 1 Day Ago Rx ~07/01/19 20 mg Acetaminophen [Acetaminophen TAB] 2 tab PO Q4H PRN #15 tablet 07/04/19 Unknown Rx hydrALAZINE [Apresoline TAB] 3 tab PO TID 31 Days tablet 07/04/19 Unknown Rx Allergies Allergy/AdvReac Type Severity Reaction Status Date / Time Penicillins Allergy Unknown Verified 01/11/18 05:46 ED Review of Systems ROS: Stated complaint: EAR AND NECK PAIN Other details as noted in HPI Comment: All other systems reviewed and negative Constitutional: chills, fever ENT: throat pain Respiratory: cough, orthopnea, shortness of breath, SOB with exertion, SOB at rest. denies: wheezing Cardiovascular: denies: chest pain, palpitations Gastrointestinal: denies: abdominal pain, nausea, vomiting Musculoskeletal: denies: back pain Neurological: denies: headache, weakness, numbness, paresthesias, confusion Psychiatric: denies: suicidal thoughts ED Past Medical Hx - Past Medical History Previous Medical History?: Yes Hx Hypertension: Yes Hx CVA: Yes Hx Heart Attack/AMI: Yes Hx Arthritis: Yes Hx COPD: Yes - Surgical History Past Surgical History?: Yes Hx Pacemaker: Yes Hx Appendectomy: Yes Additional Surgical History: 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 - Social History Smoking Status: Never Smoker - Medications Home Medications: Home Medications Medication Instructions Recorded Confirmed Last Taken Type Metoprolol Xl [Metoprolol 25 mg PO QDAY #30 tablet 01/12/18 07/02/19 1 Day Ago Rx SUCCINATE ER TAB] ~07/01/19 25 mg Rivaroxaban [Xarelto] 20 mg PO QHS #30 tablet 01/12/18 07/02/19 1 Day Ago Rx ~07/01/19 20 mg Acetaminophen [Acetaminophen TAB] 2 tab PO Q4H PRN #15 tablet 07/04/19 Unknown Rx hydrALAZINE [Apresoline TAB] 3 tab PO TID 31 Days tablet 07/04/19 Unknown Rx ED Physical Exam - General Limitations: Physical Limitation General appearance: alert, in no apparent distress - Head Head exam: Present: atraumatic, normocephalic, normal inspection - Eye Eye exam: Present: normal appearance - ENT ENT exam: Present: normal exam, normal orophraynx, mucous membranes moist - Neck Neck exam: Present: normal inspection, full ROM. Absent: tenderness, meningismus - Respiratory Respiratory exam: Present: normal lung sounds bilaterally - Cardiovascular Cardiovascular Exam: Present: bradycardia - GI/Abdominal GI/Abdominal exam: Present: soft, normal bowel sounds. Absent: distended, ten derness, guarding, rebound, rigid, organomegaly, mass, bruit, pulsatile mass, hernia - Extremities Exam Extremities exam: Present: full ROM, pedal edema. Absent: calf tenderness - Back Exam Back exam: Present: normal inspection, full ROM. Absent: CVA tenderness (R), CVA tenderness (L) - Neurological Exam Neurological exam: Present: alert, oriented X3, CN II-XII intact, normal gait, reflexes normal. Absent: motor sensory deficit - Psychiatric Psychiatric exam: Present: normal mood - Skin Skin exam: Present: warm, intact, normal color ED Course Vital Signs 07/27/21 18:08 Temperature 99 F Pulse Rate 50 L Respiratory 18 Rate Blood Pressure 175/71 [Right] O2 Sat by Pulse 97 Oximetry ED Medical Decision Making - Lab Data Result diagrams: 07/27/21 19:10 - Radiology Data Radiology results: report reviewed - Medical Decision Making Patient is 89 years old female with history of congestive heart failure, COPD, hypertension and CVA. Patient brought to the emergency room by her daughter for evaluation of shortness of breath, cough and throat pain for the last few days. Patient stated that her granddaughter came with a flu like symptoms few days ago and she catch it. She she stated that she is over the fever and the cough now but she stated that she used peroxide to clean her throat and she is having some burning sensation since then. Patient denied any chest pain, abdominal pain, nausea or vomiting. Patient remained stable with a stable vital sign and oxygen saturation of 100% on room air. Labs reviewed and showed elevated BMP however the chest x-ray showed no pulmonary edema. Chest x-ray also showed a possibly displaced pacemaker wire with pleural effusion. I discussed the patient with Dr. Delgado, locomotive observer on-call for Dr. Delgado, he advised that patient can follow-up in the office for device check and further management. Patient informed about the finding in advised to follow-up with her locomotive observer in the next 2 to 3 days and to return to the ER if she develop any new symptoms. Critical care attestation.: If time is entered above; I have spent that time in minutes in the direct care of this critically ill patient, excluding procedure time. ED Disposition Clinical Impression: Shortness of breath, Pacemaker displacement, Sore throat Disposition: 01 HOME / SELF CARE / HOMELESS Is pt being admited?: No Condition: Stable Instructions: Shortness of Breath, Adult, [id number] Referrals: AMMON DELGADO MD [Staff Physician] - 3-5 Days
[2021-07-27 19:25] LABS: Basophils # (Auto) 0.1 K/mm3 (0.0-0.1); Basophils % (Auto) 0.8 % (0.0-1.8); Eosinophils # (Auto) 0.3 K/mm3 (0.0-0.4); Eosinophils % (Auto) 4.2 % (0.0-4.3); Hematocrit 36.6 % (30.3-42.9); Hemoglobin 12.5 gm/dl (10.1-14.3); Lymphocytes # (Auto) 1.7 K/mm3 (1.2-5.4); Lymphocytes % (Auto) 25.3 % (13.4-35.0); Mean Corpuscular HGB Conc 34 % (30-34); Mean Corpuscular Volume 94 fl (79-97); Monocytes # (Auto) 0.7 K/mm3 (0.0-0.8); Monocytes % (Auto) 10.1 % (0.0-7.3); Platelet Count 194 K/mm3 (140-440); Red Blood Count 3.88 M/mm3 (3.65-5.03); Red Cell Distribution Width 14.1 % (13.2-15.2)
[2021-07-27 19:35] LABS: INR 1.98 (0.87-1.13)
[2021-07-27 19:36] LABS: Partial Thromboplastin Time 33.5 Sec. (24.2-36.6)
[2021-07-27 19:51] LABS: Alanine Aminotransferase 24 units/L (7-56); Albumin 3.5 g/dL (3.9-5); Bilirubin,Direct 0.3 mg/dL (0-0.2)
--- NOTE | 2021-07-27 20:28 | XRay Report ---
CHEST 2 VIEWS INDICATION / CLINICAL INFORMATION: Dyspnea. COMPARISON: 07/01/2019 FINDINGS: SUPPORT DEVICES: Left chest wall dual lead cardiac pacemaker. The right atrial wire appears displaced compared to previous radiograph. HEART / MEDIASTINUM: Upper limits of normal heart size. LUNGS / PLEURA: No significant pulmonary or pleural abnormality. No pneumothorax. ADDITIONAL FINDINGS: No significant additional findings. IMPRESSION: 1. Right atrial wire of the cardiac pacemaker appears displaced compared to previous radiograph sugge sting pericardial effusion. Signer Name: Nader Castillo DO Signed: 07/27/2021 8:23 PM Workstation Name: [id number]
--- NOTE | 2021-07-29 11:21 | Electrocardiograph Report ---
[facility] Test Date: 2021-07-27 Test Time: 18:44:44 Pat Name: JOSÉ LUIS LU Department: Room: Gender: F Camera Supervisor: : [id number] Requested By: DEVON RUVALCABA Order Number: [id number] Reading MD: Candi Judd Measurements Intervals [place] Rate: 50 P: 0 ME: 218 QRS: -84 QRSD: 150 T: 83 QT: 508 QTc: 464 Interpretive Statements Ventricular-paced rhythm No previous ECG available for comparison Electronically Signed On 07-29-2021 11:21:01 EDT by Candi Judd
== END 2021-07-27 21:40 | disposition home or self-care (01) ==
LOC: ED 17:38
DX: T82.121A Displacement of cardiac pulse generator (battery), initial encounter (principal); J02.9 Acute pharyngitis, unspecified; R06.02 Shortness of breath; I11.9 Hypertensive heart disease without heart failure; Z86.73 Personal history of transient ischemic attack (TIA), and cerebral infarction without residual deficits; M19.90 Unspecified osteoarthritis, unspecified site; J44.9 Chronic obstructive pulmonary disease, unspecified; Z98.890 Other specified postprocedural states; Z88.0 Allergy status to penicillin; Y71.8 Miscellaneous cardiovascular devices associated with adverse incidents, not elsewhere classified; Y92.89 Other specified places as the place of occurrence of the external cause
CPT/HCPCS: 36415; 71046; 80076; 82140; 83880; 84484; 85025; 85610; 85730; 93005; 99283

== ENCOUNTER 2022-02-04 13:11 | Emergency (ER) | payer MEDICARE ==
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
--- NOTE | 2022-02-04 13:48 | Cat Scan Report ---
CT head/brain wo con INDICATION / CLINICAL INFORMATION: 89 years Female; CODE STROKE CALL ER MAIN AT 8199 Stroke symptoms. TECHNIQUE: Routine CT head without contrast. All CT scans at this location are performed using CT dos e reduction for ALARA by means of automated exposure control. COMPARISON: None. FINDINGS: BRAIN / INTRACRANIAL CONTENTS: The motion and positioning degrade the image quality. However, there i s extensive cerebral white matter disease most consistent with microvascular angiopathy. There does a ppear to be increase attenuation within the proximal right MCA concerning for thrombus at. Additional ly, there is subtle decreased signal within the left frontotemporal region concerning for evolving in farct. There is also moderate cerebral atrophy with associated prominence of the ventricular system. There is calcification within the basal ganglia and bilateral cerebellar white matter. There is also note of calcification along the falx. There is no gross CT evidence of acute intracranial hemorrhage or significant mass effect. ORBITS: No significant abnormality of visualized orbits. SINUSES / MASTOIDS: The visualized paranasal sinuses are clear. CRANIOCERVICAL JUNCTION: No significant abnormality. ADDITIONAL FINDINGS: None. IMPRESSION: 1. The study is limited by motion. However, the findings are indicative of thrombus within the right MCA as detailed above with evolving infarct. 2. There is otherwise extensive microvascular angiopathy without clear CT evidence of acute intracran ial hemorrhage. The study was specified as stat and called emergently to Dr. Calloway in the ER at 12:40 PM Central stand jeimy time. Signer Name: Luís Bishop MD Signed: 02/04/2022 1:44 PM Workstation Name: [id number]
[2022-02-04 13:54] LABS: Basophils % (Auto) 0.9 % (0.0-1.8); Eosinophils # (Auto) 0.2 K/mm3 (0.0-0.4); Eosinophils % (Auto) 3.6 % (0.0-4.3); Hematocrit 35.2 % (30.3-42.9); Hemoglobin 11.9 gm/dl (10.1-14.3); Lymphocytes # (Auto) 1.2 K/mm3 (1.2-5.4); Lymphocytes % (Auto) 26.1 % (13.4-35.0); Mean Corpuscular HGB Conc 34 % (30-34); Mean Corpuscular Volume 92 fl (79-97); Monocytes # (Auto) 0.4 K/mm3 (0.0-0.8); Monocytes % (Auto) 9.3 % (0.0-7.3); Platelet Count 152 K/mm3 (140-440); Red Blood Count 3.83 M/mm3 (3.65-5.03); Red Cell Distribution Width 14.3 % (13.2-15.2)
[2022-02-04 14:05] LABS: INR 2.88 (0.87-1.13); Thrombin Time 21.2 Sec. (15.1-19.6)
--- NOTE | 2022-02-04 14:20 | Cat Scan Report ---
CTA HEAD WITH CONTRAST 02/04/2022 HISTORY: OMNI 350 100 ML stroke sx. COMPARISON: CT brain 02/04/2022 TECHNIQUE: All CT scans at this location are performed using CT dose reduction for ALARA by means of automated exposure control.. 3-D/MIP reformats postprocessed. Percentage stenosis is determined by d irect quantitative measurements of diseased internal carotid artery diameter compared with normal dis [place] internal carotid artery reference segments or by criteria similar to NASCET where applicable. CONTRAST: 100 ml of Omnipaque 350 FINDINGS: CTA HEAD: Intracranial vertebral arteries: No significant abnormality. Basilar artery: No significant abnormality. Posterior cerebral arteries: Moderately severe atherosclerotic irregularity is seen along the course of the posterior cerebral arteries bilaterally, more prominently on the right. Intracranial internal carotid arteries: There is nonopacification of the right distal internal caroti d artery, consistent with proximal occlusion. Prominent atherosclerotic calcifications are associated with the left distal cavernous ICA. Anterior cerebral arteries: No significant abnormality. Middle cerebral arteries: There is nonopacification of the right middle cerebral artery M1 and M2 bra nches. There is significant paucity of vascular opacification throughout the right MCA distribution, associated with diffuse developing cerebral edema in the right MCA territory. The left MCA is unremarkable. Dural venous sinuses:Not optimally opacified. No significant abnormality. Additional findings: None. IMPRESSION: 1. Findings consistent with acute right ICA and MCA occlusion with developing ischemic edema. Signer Name: Ilir Carcamo MD Signed: 02/04/2022 2:16 PM Workstation Name: [id number]
--- NOTE | 2022-02-04 14:22 | Cat Scan Report ---
CTA NECK WITH CONTRAST 06/06/2022 INDICATION / CLINICAL INFORMATION: OMNI 350 100 ML stroke sx. COMPARISON: None. TECHNIQUE: Routine CTA of the neck is performed. 3-D/MIP reformats were postprocessed. Percentage st enosis is determined by direct quantitative measurements of diseased internal carotid artery diameter compared with normal distal internal carotid artery reference segments or by criteria similar to [place]ES[place] CET where applicable. All CT scans at this location are performed using CT dose reduction for ALARA b y means of automated exposure control. CONTRAST: 100 ml of Omnipaque 350 FINDINGS: Carotid bifurcations: There is atherosclerotic calcification present at the carotid bifurcations. Carotid arteries: The right internal carotid artery tapers to a complete occlusion approximately the C1 level. There is no evidence of opacification above this level at the level of skull base. Left bif urcation demonstrates no evidence of significant stenosis. Opacification of the left vertebral artery is noted. Cervical vertebral arteries: No significant abnormality. Aortic arch: No significant abnormality. None. IMPRESSION: Findings consistent with right ICA occlusion above the level of the bifurcation as described above. T his may be due to atherosclerotic thrombosis, although this appearance could also be seen with chroni c dissection, based on the tapered appearance of the cervical internal carotid artery.. Signer Name: Ilir Carcamo MD Signed: 02/04/2022 2:18 PM Workstation Name: [id number]
[2022-02-04 14:32] LABS: Creatine Kinase MB 2.2 ng/mL (0.0-4.0)
[2022-02-04 14:33] LABS: Alanine Aminotransferase 18 units/L (7-56); Albumin 3.4 g/dL (3.9-5); Blood Urea Nitrogen 15 mg/dL (7-17); Calcium 8.6 mg/dL (8.4-10.2); Hemolysis Index 3
[2022-02-04 14:35] LABS: BUN/Creatinine Ratio 21
[2022-02-04] MEDS ORDERED: POTASSIUM CHLORIDE 10 MEQ 10 MEQ/100 ML BAG IV SCH (15:00)
[2022-02-04 15:18] VITALS: BP 169/75
--- NOTE | 2022-02-05 20:28 | Electrocardiograph Report ---
[facility] Test Date: 2022-02-04 Test Time: 14:26:59 Pat Name: JOSÉ LUIS LU Department: Room: Gender: F [employer]: TI : [id number] Requested By: TREASURE PARKER Order Number: [id number] Reading MD: Candi Judd Measurements Intervals [place] Rate: 50 P: MA: QRS: -70 QRSD: 165 T: 91 QT: 534 QTc: 487 Interpretive Statements Ventricular paced complexes Compared to ECG 07/27/2021 18:44:44 No significant change Electronically Signed On 02-05-2022 20:27:33 EDT by Candi Judd
== END 2022-02-04 15:34 | disposition short-term general hospital (02) ==
LOC: ED 13:11
DX: I63.9 Cerebral infarction, unspecified (principal); E87.6 Hypokalemia; I10 Essential (primary) hypertension; I21.9 Acute myocardial infarction, unspecified; J44.9 Chronic obstructive pulmonary disease, unspecified; Z98.890 Other specified postprocedural states; Z79.899 Other long term (current) drug therapy; Z88.0 Allergy status to penicillin
CPT/HCPCS: 36415; 70450; 70496; 70498; 80053; 82550; 82553; 84484; 85025; 85610; 85670; 85730; 93005; 99291; Q9967; 99285